=== PATIENT | male | born 1980 | race Caucasian/White ===

== ENCOUNTER 2020-06-03 13:30 | Inpatient (IN) | payer BC, OTHER ==
[2020-06-03 15:18] VITALS: BMI 20.7
--- NOTE | 2020-06-03 15:46 | BHS.RME ---
Substance Use & Tx History - Substance Use History Heroin Substance amount: heroin 30 bgas Frequency of use: Daily Substance route: Injection (ex: intravenous or skin popping) Date of Last Use: 06/02/20 Xanax Substance amount: 10 mgs Frequency of use: Daily Substance route: Oral Date of Last Use: 06/02/20 - Last Treatment Date of last treatment: [facility] 04/20/16 to 04/24/16 Where was last treatment: Detox Physical/Psych/Mental Status - Behavior Eye Contact: Normal - Cooperativeness Cooperativeness: Cooperative - Thinking Thought Processes: Logical - Physical Health Problems Is patient presently having any pain?: No Does patient presently have any injuries (include location): No Does patient currently have a fever: No COWS - Scale Resting Pulse: 0= [place] 80 or Below Sweatin= Chills/Flushing Restless Observation: 3= Extraneous Movement Pupil Size: 1= Pupils >than Normal Bone or Joint Aches: 2= Severe Diffuse Aches Runny Nose/ Eye Tearin= Runny Nose/Eyes GI Upset > 30mins: 3= Vomiting/Diarrhea Tremor Observation: 2= Slight Tremor Visible Yawning Observation: 2= >3x During Session Anxiety or Irritability: 2=Irritable/Anxious Goose Flesh Skin: 0=Smooth Skin COWS Score: 18
--- NOTE | 2020-06-03 15:52 | HP ---
COWS - Scale Resting Pulse: 0= [place] 80 or Below Sweatin= Chills/Flushing Restless Observation: 3= Extraneous Movement Pupil Size: 1= Pupils >than Normal Bone or Joint Aches: 2= Severe Diffuse Aches Runny Nose/ Eye Tearin= Runny Nose/Eyes GI Upset > 30mins: 3= Vomiting/Diarrhea Tremor Observation: 2= Slight Tremor Visible Yawning Observation: 2= >3x During Session Anxiety or Irritability: 2=Irritable/Anxious Goose Flesh Skin: 0=Smooth Skin COWS Score: 18 CIWA Score Nausea/Vomitin Muscle Tremors: 3 Anxiety: 3 Agitation: 3 Paroxysmal Sweats: 1-Minimal Palms Moist Orientation: 0-Oriented Tacttile Disturbances: 1-Very Mild Itch/Numbness Auditory Disturbances: 0-None Visual Disturbances: 0-None Headache: 2-Mild CIWA-Ar Total Score: 15 - Admission Criteria OASAS Guidelines: Admission for Medically Managed Detox: Requires at least one of the followin. CIWA greater than 12 2. Seizures within the past 24 hours 3. Delirium tremens within the past 24 hours 4. Hallucinations within the past 24 hours 5. Acute intervention needed for co occurring medical disorder 6. Acute intervention needed for co occurring psychiatric disorder 7. Severe withdrawal that cannot be handled at a lower level of care (continued vomiting, continued diarrhea, abnormal vital signs) requiring intravenous medication and/or fluids 8. Admitting History and Physical - Admission Chief Complaint: i need help to stop using heroin and xanax History of Present Illness: this 40 years old male with heroin and xanxa dependence,seeking detox History Source: Patient Limitations to Obtaining History: No Limitations - Smoking History Smoking history: Current every day smoker Have you smoked in the past 12 months: Yes Aproximately how many cigarettes per day: 20 - Alcohol/Substance Use Hx Alcohol Use: Yes History of Substance Use: reports: Heroin, Tranquilizers Date of Last Use: 06/02/20 - Social History Usual Living Arrangement: Yes: Alone Do you think of yourself as: Straight/Heterosexual ADL: Independent Occupation: [employer] History of Recent Travel: No Other Social History: no legaal issue Admission ROS BHS - HPI Chief Complaint: i need help to stop using heroin,xanax Allergies/Adverse Reactions: Allergies Allergy/AdvReac Type Severity Reaction Status Date / Time No Known Allergies Allergy Verified 06/03/20 15:14 History of Present Illness: this 40 years old male with heroin and xanax dependence seeking detox,withdrawal symptom, multiple admissions last detox 04/20/18 to 04/24/18 relapsed 8 months ago longest sobriety 4 years nicotine dependence no legal issue Exam Limitations: No Limitations - Ebola screening Have you traveled outside of the country in the last 21 days: No Have you had contact with anyone from an Ebola affected area: No Have you been sick,other than usual withdrawal symptoms: No Do you have a fever: No - Review of Systems Constitutional: Loss of Appetite, Malaise, Night Sweats, Changes in sleep, Weakness EENT: reports: Tearing, Nose Congestion Respiratory: reports: No Symptoms reported GI: reports: Diarrhea, Nausea, Vomiting, Abdominal cramping : reports: No Symptoms Reported Musculoskeletal: reports: Back Pain, Muscle Pain Integumentary: reports: Dryness Neuro: reports: Tremors Endocrine: reports: No Symptoms Reported Hematology: reports: No Symptoms Reported Psychiatric: reports: No Sypmtoms Reported, Judgement Intact, Mood/Affect Appropiate, Orientated x3 Patient History - Patient Medical History Hx Anemia: No Hx Asthma: No Hx Chronic Obstructive Pulmonary Disease (COPD): No Hx Cancer: No Hx Cardiac Disorders: No Hx Congestive Heart Failure: No Hx Hypertension: No Hx Hypercholesterolemia: No Hx Pacemaker: No HX Cerebrovascular Accident: No Hx Seizures: No Hx Dementia: No Hx Diabetes: No Hx Gastrointestinal Disorders: No Hx Liver Disease: No Hx Genitourinary Disorders: No Hx Sexually Transmitted Disorders: No Hx Renal Disease (ESRD): No Hx Thyroid Disease: No Hx Human Immunodeficiency Virus (HIV): No (last 2019 negative) Hx Hepatitis C: No Hx Depression: No Hx Suicide Attempt: No Hx Bipolar Disorder: No Hx Schizophrenia: No Other Medical History: no suicidal,no homicidal - Patient Surgical History Past Surgical History: Yes Hx Neurologic Surgery: No Hx Cataract Extraction: No Hx Cardiac Surgery: No Hx Lung Surgery: No Hx Breast Surgery: No Hx Breast Biopsy: No Hx Abdominal Surgery: No Hx Appendectomy: Yes (removed age 7) Hx Cholecystectomy: No Hx Genitourinary Surgery: No Hx Section: No Hx Orthopedic Surgery: No - PPD History Previous Implant?: Yes Documented Results: Negative w/proof Implanted On Prior R Admission?: Yes Date: 05/17/15 Results: 0 mm PPD to be Administered?: Yes - Reproductive History Patient : (n/a) - Smoking Cessation Smoking history: Current every day smoker Have you smoked in the past 12 months: Yes Aproximately how many cigarettes per day: 20 Cigars Per Day: 0 Hx Chewing Tobacco Use: No Initiated information on smoking cessation: Yes 'Breaking Loose' booklet given: 06/03/20 - Substance & Tx. History Hx Alcohol Use: No Hx Substance Use: Yes Substance Use Type: Heroin, Tranquilizers Hx Substance Use Treatment: Yes ([facility] 04/20/16 to 04/24/16) - Substances abused Heroin Substance route: Injection Frequency: Daily Amount used: 30 bags Age of first use: 17 Date of last use: 06/02/20 Alcohol Substance route: Oral Frequency: Daily Amount used: 1 liter of vodka Age of first use: 13 Date of last use: 06/03/20 Alprazolam (Xanax) Substance route: Oral Frequency: Daily Amount used: 10 mgs Age of first use: 21 Date of last use: 06/02/20 Admission Physical Exam BHS - Vital Signs Vital Signs: Vital Signs - 24 hr 06/03/20 15:15 Temperature 98.0 F Pulse Rate 77 Respiratory 20 Rate Blood Pressure 125/78 - Physical General Appearance: Yes: Moderate Distress, Tremorous, Irritable, Sweating, Anxious HEENTM: Yes: Normal ENT Inspection, JACKIE, Pharynx Normal Respiratory: Yes: Lungs Clear, Normal Breath Sounds, No Respiratory Distress Neck: Yes: Within Normal Limits, Supple, Trachea in good position Breast: Yes: Within Normal Limits Cardiology: Yes: Within Normal Limits, Regular Rhythm, Regular Rate, S1, S2 Abdominal: Yes: Within Normal Limits, Normal Bowel Sounds, Non Tender, Flat, Soft Genitourinary: Yes: Within Normal Limits Back: Yes: Muscle Spasm Musculoskeletal: Yes: Back pain, Joint Stiffness, Muscle Pain Extremities: Yes: Within Normal Limits, Normal Range of Motion, Tremors Neurological: Yes: meteorological aide II-XII NML intact, Fully Oriented, Alert, Motor Strength 5/5 Integumentary: Yes: Dry Lymphatic: Yes: Within Normal Limits - Diagnostic (1) Opioid dependence with withdrawal Current Visit: Yes Status: Acute (2) Opioid dependence with withdrawal Current Visit: Yes Status: Acute (3) Sedative, hypnotic or anxiolytic dependence with withdrawal, uncomplicated Current Visit: No Status: Acute (4) Alcohol dependence Current Visit: No Status: Chronic (5) S/P appendectomy Current Visit: No Status: Acute (6) IVDU (intravenous drug user) Current Visit: Yes Status: Acute Cleared for Admission [facility] - Detox or Rehab [facility] Level of Care: Medically Managed Detox Regimen/Protocol: Methadone/Valium Breathalyzer - Breathalyzer Breathalyzer: 0 Urine Drug Screen - Test Device Lot number: [id number] Expiration date: 07/31/21 - Control Is test valid?: Yes - Results Drug screen NEGATIVE: No Urine drug screen results: FEN-Fentanyl, MOP-Opiates, BZO-Benzodiazepines Inpatient Rehab Admission - Rehab Decision to Admit Inpatient rehab admission?: No
[2020-06-03] MEDS ORDERED: MAGNESIUM HYDROX 2400MG/30ML ORAL SUSPENSION 30 ML CUP PO PRN (16:01)
[2020-06-03] MEDS ORDERED: MAGNESIUM CITRATE 300 ML BOTTLE PO PRN (16:01)
[2020-06-03] MEDS ORDERED: ACETAMINOPHEN 325 MG TABLET (FP) PO PRN (16:01)
[2020-06-03] MEDS ORDERED: NICOTINE POLACRILEX 2 MG GUM BUC PRN (16:01)
[2020-06-03] MEDS ORDERED: cloNIDine HCL 0.1 MG TABLET PO PRN (16:01)
[2020-06-03] MEDS ORDERED: IBUPROFEN 400 MG TABLET (FP) PO PRN (16:01)
[2020-06-03] MEDS ORDERED: MAG HYDROX/AL HYDROX/SIMETH 30 ML UNIT-DOSE CUP PO PRN (16:01)
[2020-06-03] MEDS ORDERED: MENTHOL/PHENOL 1 EACH UD MM PRN (16:01)
[2020-06-03] MEDS ORDERED: BISMUTH SUBSALICYLATE 524 MG/30 ML UD PO PRN (16:01)
[2020-06-03] MEDS ORDERED: TRIMETHOBENZAMIDE HCL 200MG/2ML INJ IM PRN (16:13)
[2020-06-03] MEDS ORDERED: ONDANSETRON *ODT* 4 MG TABLET SL ONE (16:15)
[2020-06-03] MEDS ORDERED: METHADONE HCL 10 MG TABLET (FOR DETOX USE ONLY) PO ONE (16:15)
[2020-06-03] MEDS: diazePAM 5 MG TABLET PO PRN (16:59)
[2020-06-03] MEDS: hydrOXYzine PAMOATE 25 MG CAPSULE (FP) PO SCH ×2 (17:03→22:12)
[2020-06-03] MEDS: THIAMINE HCL 100 MG TABLET (FP) PO SCH (22:12)
[2020-06-03] MEDS: METHOCARBAMOL 500 MG TABLET PO PRN (22:12)
[2020-06-03] MEDS: diazePAM 5 MG TABLET PO SCH (22:12)
[2020-06-03] MEDS: MELATONIN 5 MG TABLETS PO SCH (22:12)
[2020-06-04] MEDS: diazePAM 5 MG TABLET PO PRN ×2 (04:02→16:33)
[2020-06-04] MEDS: diazePAM 5 MG TABLET PO SCH ×3 (05:32→21:10)
[2020-06-04] MEDS: hydrOXYzine PAMOATE 25 MG CAPSULE (FP) PO SCH ×5 (05:32→21:10)
[2020-06-04] MEDS ORDERED: METHADONE HCL 5 MG TABLET (FOR DETOX USE ONLY) ONE (09:03)
[2020-06-04] MEDS ORDERED: METHADONE HCL 10 MG TABLET (FOR DETOX USE ONLY) ONE (09:03)
[2020-06-04] MEDS: NICOTINE 21 MG/24 HOURS TOPICAL PATCH TD SCH (09:15)
[2020-06-04] MEDS: PRENATAL VITAMINS W/ FOLIC ACID TABLET (FP) PO SCH (09:15)
[2020-06-04 09:19] LABS: HEMATOCRIT 40.6 % (35.4-49); HEMOGLOBIN 13.6 GM/dL (11.7-16.9); MCH 30.9 pg (25.7-33.7); MCHC 33.5 g/dl (32.0-35.9); MEAN CELL VOLUME 92.2 fl (80-96); MEAN PLT VOLUME 11.1 fl (7.5-11.1); PLATELET COUNT 147 K/MM3 (134-434); RDW 12.6 % (11.9-15.9); WHITE BLOOD COUNT 5.1 K/mm3 (4.0-10.0)
[2020-06-04] MEDS: METHOCARBAMOL 500 MG TABLET PO PRN ×2 (09:19→16:33)
[2020-06-04 09:35] LABS: ALBUMIN 3.4 g/dl (3.4-5.0); BILIRUBIN,TOTAL 0.5 mg/dL (0.2-1); BLOOD UREA NITROGEN 13.5 mg/dL (7-18); CALCIUM 8.9 mg/dL (8.5-10.1); CREATININE 0.8 mg/dL (0.55-1.3); POTASSIUM 4.1 mmol/L (3.5-5.1)
[2020-06-04] MEDS ORDERED: METHADONE (DETOX) 20 MG, METHADONE (DETOX) 5 MG PO ONE (10:00)
--- NOTE | 2020-06-04 10:12 | PN ---
S CIWA - CIWA Score Nausea/Vomitin-Mild Nausea/No Vomiting Muscle Tremors: 3 Anxiety: 3 Agitation: 2 Paroxysmal Sweats: 1-Minimal Palms Moist Orientation: 0-Oriented Tacttile Disturbances: 1-Very Mild Itch/Numbness Auditory Disturbances: 0-None Visual Disturbances: 2-Mild Sensitivity Headache: 1-Very Mild CIWA-Ar Total Score: 14 BHS COWS - Scale Resting Pulse: 0= [place] 80 or Below Sweatin= Chills/Flushing Restless Observation: 0= Sits Still Pupil Size: 1= Pupils >than Normal Bone or Joint Aches: 1= Mild Discomfort Runny Nose/ Eye Tearin= Nasal Congestion GI Upset > 30mins: 2= Nausea/Diarrhea Tremor Observation of Outstretched Hands: 2= Slight Tremor Visible Yawning Observation: 1= 1-2x During Session Anxiety or Irritability: 2=Irritable/Anxious Goose Flesh Skin: 3=Piloerection COWS Score: 14 S Progress Note (SOAP) Subjective: 40 years old male admitted on 06/03/20 for alcohol benzo opiate withdrawal sx management treating with valium and methadone detox regiments feeling tired resting in bed bmi 20.8 ensure 120 ml po tid supplement encourage hygiene and consider medication assisted treatment program Objective: 06/04/20 10:14 Vital Signs - 24 hr 06/03/20 06/03/20 06/03/20 15:15 16:44 20:45 Temperature 98.0 F 97.5 F L 97.7 F Pulse Rate 77 72 69 Respiratory 20 18 18 Rate Blood Pressure 125/78 151/91 107/66 O2 Sat by Pulse 100 98 Oximetry (%) 06/04/20 06/04/20 06/04/20 01:06 03:28 05:30 Temperature 97.5 F L Pulse Rate 65 Respiratory 18 18 18 Rate Blood Pressure 101/66 O2 Sat by Pulse 100 Oximetry (%) 06/04/20 08:43 Temperature 97.3 F L Pulse Rate 64 Respiratory 18 Rate Blood Pressure 108/69 O2 Sat by Pulse Oximetry (%) Laboratory Tests 06/04/20 06/04/20 06/04/20 07:35 07:35 07:35 WBC 5.1 RBC 4.40 Hgb 13.6 Hct 40.6 MCV 92.2 MCH 30.9 MCHC 33.5 RDW 12.6 D Plt Count 147 D MPV 11.1 Sodium 141 Potassium 4.1 Chloride 105 Carbon Dioxide 29 Anion Gap 7 L BUN 13.5 Creatinine 0.8 Est GFR (CKD-EPI)AfAm 129.51 Est GFR (CKD-EPI)NonAf 111.74 Random Glucose 86 Calcium 8.9 Total Bilirubin 0.5 AST 12 L ALT 28 Alkaline Phosphatase 46 Total Protein 6.0 L Albumin 3.4 Syphilis Serology Non-reactive lab noted Assessment: 06/04/20 10:15 alcohol benzo opiate withdrawal Plan: valium and methadone regiments
[2020-06-04] MEDS ORDERED: MASKS NR ONE (14:05)
[2020-06-04] MEDS: THIAMINE HCL 100 MG TABLET (FP) PO SCH (21:10)
[2020-06-04] MEDS: MELATONIN 5 MG TABLETS PO SCH (21:11)
[2020-06-05] MEDS: diazePAM 5 MG TABLET PO PRN ×4 (04:20→19:46)
[2020-06-05] MEDS: hydrOXYzine PAMOATE 25 MG CAPSULE (FP) PO SCH ×4 (05:24→22:23)
[2020-06-05] MEDS: diazePAM 5 MG TABLET PO SCH ×2 (05:24→17:32)
[2020-06-05] MEDS: METHOCARBAMOL 500 MG TABLET PO PRN ×3 (05:27→22:27)
[2020-06-05] MEDS: NICOTINE 21 MG/24 HOURS TOPICAL PATCH TD SCH (09:09)
[2020-06-05] MEDS: PRENATAL VITAMINS W/ FOLIC ACID TABLET (FP) PO SCH (09:09)
[2020-06-05] MEDS ORDERED: METHADONE HCL 10 MG TABLET (FOR DETOX USE ONLY) PO ONE (10:00)
--- NOTE | 2020-06-05 10:45 | PN ---
[facility] CIWA - CIWA Score Nausea/Vomitin-Mild Nausea/No Vomiting Muscle Tremors: 2 Anxiety: 2 Agitation: 1-Slight > Activity Paroxysmal Sweats: 2 Orientation: 0-Oriented Tacttile Disturbances: 0-None Auditory Disturbances: 0-None Visual Disturbances: 1-Very Mild Sensitivity Headache: 2-Mild CIWA-Ar Total Score: 11 S COWS - Scale Resting Pulse: 0= [place] 80 or Below Sweatin= Chills/Flushing Restless Observation: 0= Sits Still Pupil Size: 1= Pupils >than Normal Bone or Joint Aches: 2= Severe Diffuse Aches Runny Nose/ Eye Tearin= Nasal Congestion GI Upset > 30mins: 2= Nausea/Diarrhea Tremor Observation of Outstretched Hands: 2= Slight Tremor Visible Yawning Observation: 0= None Anxiety or Irritability: 2=Irritable/Anxious Goose Flesh Skin: 0=Smooth Skin COWS Score: 11 [facility] Progress Note (SOAP) Subjective: 40 years old male admitted on 06/03/20 for alcohol benzo opiate withdrawal sx management treating with valium and methadone detox regiments ate breakfast feeling nausea zofran 4 mg sl x 1 discontinue motrin pepcid 20mg po bid increase vistaril to 50 mg po q6h as symptoms management reports body aches tylenal 650mg po x 1 Objective: 06/05/20 10:46 Vital Signs - 24 hr 06/04/20 06/04/20 06/04/20 12:30 16:28 20:32 Temperature 97.3 F L 97.5 F L 97.3 F L Pulse Rate 69 58 L 53 L Respiratory 18 18 16 Rate Blood Pressure 117/78 102/62 101/71 O2 Sat by Pulse 99 96 Oximetry (%) 06/05/20 06/05/20 06/05/20 00:23 03:18 06:10 Temperature 97.8 F Pulse Rate 59 L Respiratory 18 16 18 Rate Blood Pressure 100/60 O2 Sat by Pulse 99 Oximetry (%) 06/05/20 06/05/20 06:30 08:55 Temperature 97.5 F L Pulse Rate 67 Respiratory 18 18 Rate Blood Pressure 114/80 O2 Sat by Pulse Oximetry (%) Laboratory Tests 06/04/20 06/04/20 06/04/20 07:35 07:35 07:35 WBC 5.1 RBC 4.40 Hgb 13.6 Hct 40.6 MCV 92.2 MCH 30.9 MCHC 33.5 RDW 12.6 D Plt Count 147 D MPV 11.1 Sodium Potassium Chloride Carbon Dioxide Anion Gap BUN Creatinine Est GFR (CKD-EPI)AfAm Est GFR (CKD-EPI)NonAf Random Glucose Calcium Total Bilirubin AST ALT Alkaline Phosphatase Total Protein Albumin Syphilis Serology Non-reactive HIV Ag/Ab Combo Qual Negative 06/04/20 07:35 WBC RBC Hgb Hct MCV MCH MCHC RDW Plt Count MPV Sodium 141 Potassium 4.1 Chloride 105 Carbon Dioxide 29 Anion Gap 7 L BUN 13.5 Creatinine 0.8 Est GFR (CKD-EPI)AfAm 129.51 Est GFR (CKD-EPI)NonAf 111.74 Random Glucose 86 Calcium 8.9 Total Bilirubin 0.5 AST 12 L ALT 28 Alkaline Phosphatase 46 Total Protein 6.0 L Albumin 3.4 Syphilis Serology HIV Ag/Ab Combo Qual lab noted Assessment: 06/05/20 10:47 alcohol and benzo and opiate withdrawal Plan: valium and methadone regiments
[2020-06-05] MEDS ORDERED: ONDANSETRON *ODT* 4 MG TABLET SL ONE (11:00)
[2020-06-05] MEDS ORDERED: ACETAMINOPHEN 325 MG TABLET (FP) PO ONE (11:00)
[2020-06-05] MEDS: FAMOTIDINE 20 MG TABLET PO SCH ×2 (11:41→22:23)
[2020-06-05] MEDS: THIAMINE HCL 100 MG TABLET (FP) PO SCH (22:23)
[2020-06-05] MEDS: MELATONIN 5 MG TABLETS PO SCH (22:23)
[2020-06-06] MEDS: diazePAM 5 MG TABLET PO PRN ×3 (02:00→14:14)
[2020-06-06] MEDS: ACETAMINOPHEN 325 MG TABLET (FP) PO PRN ×2 (02:01→17:51)
[2020-06-06] MEDS: hydrOXYzine PAMOATE 25 MG CAPSULE (FP) PO SCH ×4 (05:11→22:07)
[2020-06-06] MEDS: METHOCARBAMOL 500 MG TABLET PO PRN ×3 (05:11→21:02)
[2020-06-06] MEDS ORDERED: diazePAM 5 MG TABLET PO ONE (06:00)
[2020-06-06] MEDS ORDERED: METHADONE HCL 10 MG TABLET (FOR DETOX USE ONLY) ONE (08:42)
[2020-06-06] MEDS ORDERED: METHADONE HCL 5 MG TABLET (FOR DETOX USE ONLY) ONE (08:43)
[2020-06-06] MEDS: NICOTINE 21 MG/24 HOURS TOPICAL PATCH TD SCH (09:19)
[2020-06-06] MEDS ORDERED: METHADONE (DETOX) 10 MG, METHADONE (DETOX) 5 MG PO ONE (10:00)
[2020-06-06] MEDS: FAMOTIDINE 20 MG TABLET PO SCH ×2 (10:17→21:56)
[2020-06-06] MEDS: PRENATAL VITAMINS W/ FOLIC ACID TABLET (FP) PO SCH (10:17)
--- NOTE | 2020-06-06 11:51 | PN ---
[facility] CIWA - CIWA Score Nausea/Vomitin-Mild Nausea/No Vomiting Muscle Tremors: 1-None Visible, but [place] Anxiety: 1-Mildly Anxious Agitation: 1-Slight > Activity Paroxysmal Sweats: 1-Minimal Palms Moist Orientation: 0-Oriented Tacttile Disturbances: 1-Very Mild Itch/Numbness Auditory Disturbances: 0-None Visual Disturbances: 0-None Headache: 1-Very Mild CIWA-Ar Total Score: 7 BHS COWS - Scale Resting Pulse: 0= [place] 80 or Below Sweatin= Chills/Flushing Restless Observation: 0= Sits Still Pupil Size: 0= Normal to Room Light Bone or Joint Aches: 1= Mild Discomfort Runny Nose/ Eye Tearin= Nasal Congestion GI Upset > 30mins: 2= Nausea/Diarrhea Tremor Observation of Outstretched Hands: 1= Tremor [place], Not Seen Yawning Observation: 0= None Anxiety or Irritability: 1=Feels Anxious/Irritable Goose Flesh Skin: 0=Smooth Skin COWS Score: 7 S Progress Note (SOAP) Subjective: 40 years old male admitted on 06/03/20 for alcohol benzo opiate withdrawal sx management treating with valium and methadone detox regiments requests to be seen by a psychiatrist for anxiety that having anxiety a long time feeling better today prefers to returning to work tomorrow less tremor mild general body aches Objective: 06/06/20 11:51 Vital Signs - 24 hr 06/05/20 06/05/20 06/05/20 13:00 16:30 20:45 Temperature 96.9 F L 97.5 F L 97.3 F L Pulse Rate 79 61 59 L Respiratory 18 20 16 Rate Blood Pressure 109/66 115/78 124/84 O2 Sat by Pulse 97 Oximetry (%) 06/05/20 06/06/20 06/06/20 21:29 03:30 06:12 Temperature 97.6 F Pulse Rate 56 L Respiratory 20 18 Rate Blood Pressure 104/68 O2 Sat by Pulse 100 99 Oximetry (%) 06/06/20 08:31 Temperature 97.5 F L Pulse Rate 62 Respiratory 18 Rate Blood Pressure 135/74 O2 Sat by Pulse Oximetry (%) Laboratory Tests 06/03/20 06/04/20 06/04/20 16:15 07:35 07:35 WBC RBC Hgb Hct MCV MCH MCHC RDW Plt Count MPV Sodium Potassium Chloride Carbon Dioxide Anion Gap BUN Creatinine Est GFR (CKD-EPI)AfAm Est GFR (CKD-EPI)NonAf Random Glucose Calcium Total Bilirubin AST ALT Alkaline Phosphatase Total Protein Albumin Syphilis Serology Non-reactive COVID-19 (JOSE) Not detected HIV Ag/Ab Combo Qual Negative 06/04/20 06/04/20 07:35 07:35 WBC 5.1 RBC 4.40 Hgb 13.6 Hct 40.6 MCV 92.2 MCH 30.9 MCHC 33.5 RDW 12.6 D Plt Count 147 D MPV 11.1 Sodium 141 Potassium 4.1 Chloride 105 Carbon Dioxide 29 Anion Gap 7 L BUN 13.5 Creatinine 0.8 Est GFR (CKD-EPI)AfAm 129.51 Est GFR (CKD-EPI)NonAf 111.74 Random Glucose 86 Calcium 8.9 Total Bilirubin 0.5 AST 12 L ALT 28 Alkaline Phosphatase 46 Total Protein 6.0 L Albumin 3.4 Syphilis Serology COVID-19 (JOSE) HIV Ag/Ab Combo Qual lab noted Assessment: 06/06/20 11:51 alcohol benzo opiate withdrawal Plan: valium and methadone regiments
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
[2020-06-06 17:28] VITALS: TEMP 97.5
[2020-06-06] MEDS: MELATONIN 5 MG TABLETS PO SCH (21:54)
[2020-06-06] MEDS: THIAMINE HCL 100 MG TABLET (FP) PO SCH (21:54)
[2020-06-06] MEDS ORDERED: MIRTAZAPINE 15 MG TABLET (FP) PO SCH (22:00)
[2020-06-07] MEDS: ACETAMINOPHEN 325 MG TABLET (FP) PO PRN ×2 (00:06→07:42)
[2020-06-07] MEDS ORDERED: METHADONE HCL 10 MG TABLET (FOR DETOX USE ONLY) PO ONE ×2 (05:00→10:00)
[2020-06-07] MEDS: hydrOXYzine PAMOATE 25 MG CAPSULE (FP) PO SCH (06:01)
[2020-06-07 06:09] VITALS: BP 100/51; PULSE 55
[2020-06-07] MEDS: METHOCARBAMOL 500 MG TABLET PO PRN (07:42)
--- NOTE | 2020-06-07 10:50 | DS ---
[facility] Detox Discharge Summary Admission Date: 06/03/20 Discharge Date: 06/07/20 - History Present History: Alcohol Dependence, Opioid Dependence, Sedative Dependence Additional Comments: 40 years old male admitted on 06/03/20 for alcohol benzo opiate withdrawal sx management treated with valium and methadone regiments seen by psychiatrist kenzie hinkle mr boone prefers to leave the detox one day early as per estimated discharge date of 06/08/20 alert oriented x 3 speech clearly coherently ambulating steady gaits respiratory clear lung sounds bilaterally on auscultation abdomen soft flat no rebound tenderness extremities full range of motion Pertinent Past History: time for discharge 45 minutes discussing the benefits of valium and methadone completion mr boone is considered medication assisted treatment program - Physical Exam Results Vital Signs: Vital Signs Temperature 97.5 F L 06/07/20 06:09 Pulse Rate 55 L 06/07/20 06:09 Respiratory Rate 18 06/07/20 06:09 Blood Pressure 100/51 L 06/07/20 06:09 O2 Sat by Pulse Oximetry (%) 97 06/07/20 06:09 Pertinent Admission Physical Exam Findings: alcohol benzo opiate withdrawal Laboratory Tests 06/03/20 06/04/20 06/04/20 16:15 07:35 07:35 WBC RBC Hgb Hct MCV MCH MCHC RDW Plt Count MPV Sodium Potassium Chloride Carbon Dioxide Anion Gap BUN Creatinine Est GFR (CKD-EPI)AfAm Est GFR (CKD-EPI)NonAf Random Glucose Calcium Total Bilirubin AST ALT Alkaline Phosphatase Total Protein Albumin Syphilis Serology Non-reactive COVID-19 (JOSE) Not detected HIV Ag/Ab Combo Qual Negative 06/04/20 06/04/20 07:35 07:35 WBC 5.1 RBC 4.40 Hgb 13.6 Hct 40.6 MCV 92.2 MCH 30.9 MCHC 33.5 RDW 12.6 D Plt Count 147 D MPV 11.1 Sodium 141 Potassium 4.1 Chloride 105 Carbon Dioxide 29 Anion Gap 7 L BUN 13.5 Creatinine 0.8 Est GFR (CKD-EPI)AfAm 129.51 Est GFR (CKD-EPI)NonAf 111.74 Random Glucose 86 Calcium 8.9 Total Bilirubin 0.5 AST 12 L ALT 28 Alkaline Phosphatase 46 Total Protein 6.0 L Albumin 3.4 Syphilis Serology COVID-19 (JOSE) HIV Ag/Ab Combo Qual lab noted - Treatment Hospital Course: Detox Protocol Followed, Detoxed Safely, Responded well, Discharged Condition Good, Rehab Referral Accepted Patient has Accepted a Rehab Referral to: [facility] - Medication Discharge Medications: Ambulatory Orders Naloxone HCl [Narcan] 4 mg NS ASDIR PRN #1 spray 06/04/20 - Diagnosis (1) Alcohol dependence with uncomplicated withdrawal Status: Acute (2) Opioid dependence with withdrawal Status: Acute (3) S/P appendectomy Status: Chronic (4) Sedative, hypnotic or anxiolytic dependence with withdrawal, uncomplicated Status: Acute (5) Nicotine dependence Status: Acute Qualifiers: Nicotine product type: cigarettes Substance use status: in withdrawal Qualified Code(s): F17.213 - Nicotine dependence, cigarettes, with withdrawal (6) Substance induced mood disorder Status: Suspected - AMA Did Patient Leave Against Medical Advice: No CIWA Score - CIWA Score Nausea/Vomitin-No Nausea/No Vomiting Muscle Tremors: 1-None Visible, but [place] Anxiety: 1-Mildly Anxious Agitation: 1-Slight > Activity Paroxysmal Sweats: No Perspiration Orientation: 0-Oriented Tacttile Disturbances: 0-None Auditory Disturbances: 0-None Visual Disturbances: 0-None Headache: 1-Very Mild CIWA-Ar Total Score: 4 COWS (PN) - Opiate Withdrawal Resting Pulse: 0= ME 80 or Below Sweatin= No chills or Flushing Restless Observation: 0= Sits Still Pupil Size: 0= Normal to Room Light Bone or Joint Aches: 1= Mild Discomfort Runny Nose/ Eye Tearin= None GI Upset > 30mins: 1= Stomach Cramp Tremor Observation of Outstretched Hands: 1= Tremor [place], Not Seen Yawning Observation: 0= None Anxiety or Irritability: 1=Feels Anxious/Irritable Goose Flesh Skin: 0=Smooth Skin COWS Score: 4
--- NOTE | 2020-06-07 18:18 | PN ---
S Progress Note Note: Psychiatry Attending's note : Scripts for mirtazapine 7.5 mg po hs # 30 tablets. 30-day supply is provided. Sent electronically to : [id number]
[2020-06-08] MEDS ORDERED: METHADONE HCL 5 MG TABLET (FOR DETOX USE ONLY) PO ONE (06:00)
== END 2020-06-07 08:40 | disposition home or self-care (01) | DRG 897 ==
LOC: YASAS 13:30 → Y3N 15:44
PROVIDERS: ADMIT Allergy & Immunology; ATTEND Allergy & Immunology
PROC: HZ2ZZZZ Detoxification Services for Substance Abuse Treatment (ICD-10-PCS; principal; 2020-06-03)
DX: F10.230 Alcohol dependence with withdrawal, uncomplicated (principal); F11.23 Opioid dependence with withdrawal; F13.230 Sedative, hypnotic or anxiolytic dependence with withdrawal, uncomplicated; F17.213 Nicotine dependence, cigarettes, with withdrawal; F19.24 Other psychoactive substance dependence with psychoactive substance-induced mood disorder; Z90.49 Acquired absence of other specified parts of digestive tract
CPT/HCPCS: 36415; 80053; 85027; 86780; 87389; J0735; Q0162; U0003